=== PATIENT | female | born 1990 | race Two or more races ===

== ENCOUNTER 2022-05-05 01:15 | Emergency (ER) | payer OTHER, BC ==
[2022-05-05] MEDS ORDERED: Acetaminophen 500 MG TAB ONE (01:43)
== END 2022-05-05 02:00 | disposition home or self-care (01) ==
LOC: ERS 01:15
DX: S93.402A Sprain of unspecified ligament of left ankle, initial encounter (principal); W01.0XXA Fall on same level from slipping, tripping and stumbling without subsequent striking against object, initial encounter